=== PATIENT | female | born 1945 | race African-American/Black ===

== ENCOUNTER 2021-03-06 10:36 | Emergency (ER) | payer OTHER ==
[2021-03-06 10:59] VITALS: BP 147/91; PULSE 92; TEMP 98.6; BMI 27.6
[2021-03-06] MEDS ORDERED: IBUPROFEN 600 MG TABLET (FP) PO ONE ×2 (11:30→11:41)
== END 2021-03-06 12:13 | disposition home or self-care (01) ==
LOC: JER 10:36 → JERFT 10:36
DX: M25.511 Pain in right shoulder (principal); M25.561 Pain in right knee
CPT/HCPCS: 73030-TC-RT-FY; 73562-TC-RT-FY; 99284-25

== ENCOUNTER 2022-07-23 14:30 | Inpatient (IN) | payer OTHER, BC ==
[2022-07-30 11:43] VITALS: BMI 24.4
[2022-07-31] MEDS ORDERED: cefOXitin SODIUM 1 GM VIAL (RESTRICTED TO ID) IVPB ONE ×2 (07:15→17:03)
[2022-07-31] MEDS ORDERED: ONDANSETRON 4 MG/2 ML VIAL IVPUSH PRN ×2 (11:47→21:31)
[2022-07-31] MEDS ORDERED: BUPIVACAINE HCL/PF 0.25% (2.5MG/ML) 10 ML VIAL ONE (16:00)
[2022-07-31] MEDS ORDERED: ROCURONIUM BROMIDE 50 MG/5 ML SYRINGE ONE (16:14)
[2022-07-31] MEDS ORDERED: SUCCINYLCHOLINE CHLORIDE 200 MG/10 ML SYRINGE ONE (16:15)
[2022-07-31] MEDS ORDERED: FENTANYL CITRATE/PF 50 MCG/ML VIAL ONE ×2 (16:15→22:16)
[2022-07-31] MEDS ORDERED: PROPOFOL 20 ML ONE (16:15)
[2022-07-31] MEDS ORDERED: ceFAZolin SODIUM 1 GM VIAL ONE (16:25)
[2022-07-31] MEDS ORDERED: INDOCYANINE GREEN 25 MG/10 ML VIAL IVPUSH ONE (16:25)
[2022-07-31] MEDS ORDERED: ceFAZolin SODIUM 1 GM VIAL IVPB ONE (17:03)
[2022-07-31] MEDS ORDERED: DEXAMETHASONE SOD PHOSPHATE 4 MG/1 ML VIAL ONE (17:17)
[2022-07-31] MEDS ORDERED: ONDANSETRON 4 MG/2 ML VIAL ONE (17:17)
[2022-07-31] MEDS ORDERED: BUPIVACAINE HCL/PF 0.25% (2.5MG/ML) 10 ML VIAL IJ ONE (17:18)
[2022-07-31] MEDS ORDERED: HYDROmorphone HCl 2 MG/ML VIAL ONE (19:36)
[2022-07-31] MEDS ORDERED: SUGAMMADEX SODIUM 200 MG/2 ML VIAL ONE (21:01)
[2022-07-31] MEDS ORDERED: ACETAMINOPHEN INJECTION 100 ML IVPB ONE (21:19)
[2022-07-31] MEDS: ACETAMINOPHEN 1000 MG/100 ML BAG IVPB SCH ×2 (21:30→23:33)
[2022-08-01] MEDS: SODIUM CHLORIDE 1,000 ML IV SCH (00:55)
[2022-08-01] MEDS: IBUPROFEN 800 MG/8 ML IJ IVPB SCH ×3 (00:56→18:12)
[2022-08-01] MEDS ORDERED: cefOXitin SODIUM 1 GM VIAL (RESTRICTED TO ID) IVPB ONE (01:00)
[2022-08-01 04:20] LABS: EPI CELLS 10 /uL (0-25.1); HYALINE CASTS 1 /uL (0-3.1); PH,URINE 6.5 (5.0-8.0); URINE APPEARANCE CLEAR; URINE BACTERIA 13 /uL (0-1359); URINE BILIRUBIN NEGATIVE (NEGATIVE); URINE COLOR YELLOW; URINE GLUCOSE (UA) NEGATIVE (NEGATIVE); URINE KETONE 2+ (NEGATIVE); URINE LEUK ESTERASE NEGATIVE (NEGATIVE); URINE NITRITE NEGATIVE (NEGATIVE); URINE PROTEIN NEGATIVE (NEGATIVE); URINE RBC 26 /uL (0-23.9); URINE UROBILINOGEN 0.2 mg/dL (0.2-1.0); URINE WBC 18 /uL (0-25.8)
[2022-08-01] MEDS: ACETAMINOPHEN 1000 MG/100 ML BAG IVPB SCH ×2 (05:13→09:30)
[2022-08-01] MEDS ORDERED: oxyCODONE HCL 5 MG TABLET PO PRN ×4 (08:11→09:35)
[2022-08-01] MEDS ORDERED: HYDROmorphone HCl 2 MG/ML VIAL IVPB STA (08:21)
[2022-08-01] MEDS: ENOXAPARIN NA (PORCINE) 40 MG/0.4 ML DISP.SYRIN SQ SCH (10:29)
[2022-08-01 10:48] LABS: HEMATOCRIT 38.1 % (32.4-45.2); MCH 25.3 pg (25.7-33.7); MCHC 31.5 g/dl (32.0-36.0); MEAN CELL VOLUME 80.2 fl (80-96); MEAN PLT VOLUME 8.2 fl (7.5-11.1); PLATELET COUNT 326 10^3/uL (134-434); RBC 4.75 M/mm3 (3.60-5.2); RDW 14.9 % (11.6-15.6); WHITE BLOOD COUNT 13.2 K/mm3 (4.0-10.0)
[2022-08-01 11:45] LABS: BLOOD UREA NITROGEN 9.2 mg/dL (7-18)
[2022-08-01 11:47] LABS: CALCIUM 9.2 mg/dL (8.5-10.1); PHOSPHOROUS 3.5 mg/dL (2.5-4.9)
[2022-08-01 11:48] LABS: CREATININE 0.7 mg/dL (0.55-1.3)
[2022-08-01] MEDS: LACTATED RINGERS SOLUTION 1,000 ML IV SCH ×2 (11:53→13:59)
[2022-08-01] MEDS ORDERED: ACETAMINOPHEN 1000 MG/100 ML BAG IVPB ONE (16:00)
[2022-08-01] MEDS ORDERED: ZOLPIDEM TARTRATE 5 MG TABLET PO PRN (22:00)
[2022-08-01] MEDS: ACETAMINOPHEN 500 MG TABLET (FP) PO SCH (22:28)
[2022-08-02] MEDS: IBUPROFEN 600 MG TABLET (FP) PO SCH ×3 (02:15→16:41)
[2022-08-02] MEDS: SODIUM CHLORIDE 1,000 ML IV SCH ×2 (02:35→02:36)
[2022-08-02] MEDS: ACETAMINOPHEN 500 MG TABLET (FP) PO SCH ×4 (05:35→21:51)
[2022-08-02] MEDS: ENOXAPARIN NA (PORCINE) 40 MG/0.4 ML DISP.SYRIN SQ SCH (09:16)
[2022-08-02] MEDS ORDERED: IRON CARBONYL 45 MG PO SCH (10:00)
[2022-08-02 10:01] LABS: BASO % 0.1 % (0-2.0); HEMOGLOBIN 12.4 GM/dL (10.7-15.3); LYMPH % 7.3 % (8-40); MCH 25.9 pg (25.7-33.7); MCHC 32.5 g/dl (32.0-36.0); MEAN CELL VOLUME 79.8 fl (80-96); MONO % 2.1 % (3.8-10.2); NEUT % 90.5 % (42.8-82.8); PLATELET COUNT 286 10^3/uL (134-434); RBC 4.76 M/mm3 (3.60-5.2); RDW 14.8 % (11.6-15.6); WHITE BLOOD COUNT 6.3 K/mm3 (4.0-10.0)
[2022-08-02 10:18] LABS: BLOOD UREA NITROGEN 11.9 mg/dL (7-18); CALCIUM 8.9 mg/dL (8.5-10.1)
[2022-08-02 10:19] LABS: ALBUMIN 2.8 g/dl (3.4-5.0); MAGNESIUM 1.8 mg/dL (1.8-2.4)
[2022-08-02 10:21] LABS: PHOSPHOROUS 3.3 mg/dL (2.5-4.9)
[2022-08-02 10:23] LABS: CREATININE 0.8 mg/dL (0.55-1.3); TOT PROT 6.1 g/dl (6.4-8.2)
[2022-08-02] MEDS ORDERED: ZOLPIDEM TARTRATE 5 MG TABLET PO PRN (11:07)
[2022-08-03 00:35] VITALS: RESP 18
[2022-08-03] MEDS: IBUPROFEN 600 MG TABLET (FP) PO SCH ×2 (00:44→09:27)
[2022-08-03] MEDS: ACETAMINOPHEN 500 MG TABLET (FP) PO SCH (04:46)
[2022-08-03 09:17] LABS: HEMATOCRIT 38.1 % (32.4-45.2); HEMOGLOBIN 12.3 GM/dL (10.7-15.3); MCH 25.4 pg (25.7-33.7); MCHC 32.4 g/dl (32.0-36.0); MEAN CELL VOLUME 78.5 fl (80-96); MEAN PLT VOLUME 8.5 fl (7.5-11.1); PLATELET COUNT 293 10^3/uL (134-434); RBC 4.86 M/mm3 (3.60-5.2); RDW 15.1 % (11.6-15.6); WHITE BLOOD COUNT 3.3 K/mm3 (4.0-10.0)
[2022-08-03] MEDS: ENOXAPARIN NA (PORCINE) 40 MG/0.4 ML DISP.SYRIN SQ SCH (09:28)
[2022-08-03 09:31] VITALS: BP 108/60; PULSE 101; TEMP 97.9
[2022-08-03 09:55] LABS: ANISOCYTOSIS 1+; MACROCYTOSIS 0
[2022-08-03 09:57] LABS: BLOOD UREA NITROGEN 18.6 mg/dL (7-18)
[2022-08-03 09:58] LABS: CREATININE 0.8 mg/dL (0.55-1.3)
[2022-08-03 09:59] LABS: PHOSPHOROUS 3.2 mg/dL (2.5-4.9)
[2022-08-03 10:00] LABS: BILIRUBIN,TOTAL 0.6 mg/dL (0.2-1); TOT PROT 5.4 g/dl (6.4-8.2)
[2022-08-03 10:06] LABS: ALBUMIN 2.2 g/dl (3.4-5.0)
== END 2022-08-03 13:15 | disposition home or self-care (01) | DRG 330 ==
LOC: J2C 07-31 05:34 → EDSTATUS 07-31 12:30 → J8W 07-31 23:21
PROVIDERS: ADMIT Surgery; ATTEND Internal Medicine
PROC: 8E0W4CZ Robotic Assisted Procedure of Trunk Region, Percutaneous Endoscopic Approach (ICD-10-PCS; 2022-07-31)
PROC: 0DTF4ZZ Resection of Right Large Intestine, Percutaneous Endoscopic Approach (ICD-10-PCS; principal; 2022-07-31 10:20)
DX: C18.3 Malignant neoplasm of hepatic flexure (principal); C18.2 Malignant neoplasm of ascending colon; D50.9 Iron deficiency anemia, unspecified; E55.9 Vitamin D deficiency, unspecified; G47.00 Insomnia, unspecified; Z85.3 Personal history of malignant neoplasm of breast; Z96.653 Presence of artificial knee joint, bilateral
CPT/HCPCS: 36415; 80048; 80053; 81003; 83735; 84100; 85025; 85027; 86140; 88307-TC; 94760; 97116-GP; 97161-GP; C9803-CS; U0003; U0005

== ENCOUNTER 2022-08-04 09:50 | Inpatient (IN) | payer OTHER, BC ==
[2022-08-04] MEDS ORDERED: SODIUM CHLORIDE 0.9% 500 ML INFUS.BAG IV ONE ×3 (11:24→15:25)
[2022-08-04] MEDS ORDERED: ACETAMINOPHEN 1000 MG/100 ML BAG IVPB ONE (13:00)
[2022-08-04 13:03] LABS: VENOUS BASE EXCESS -1.9 mmol/L (-2-2); VENOUS O2 SATURATION 78.1 % (70-80); VENOUS PCO2 32.4 mmHg (38-52); VENOUS PH 7.437 (7.310-7.410)
[2022-08-04 13:07] LABS: HEMATOCRIT 37.9 % (32.4-45.2); HEMOGLOBIN 12.5 GM/dL (10.7-15.3); MCH 25.5 pg (25.7-33.7); MCHC 32.9 g/dl (32.0-36.0); MEAN CELL VOLUME 77.6 fl (80-96); MEAN PLT VOLUME 9.3 fl (7.5-11.1); PLATELET COUNT 340 10^3/uL (134-434); RBC 4.89 M/mm3 (3.60-5.2); RDW 15.2 % (11.6-15.6); WHITE BLOOD COUNT 4.3 K/mm3 (4.0-10.0)
[2022-08-04 13:15] LABS: INR 1.09 (0.83-1.09); PROTHROMBIN TIME (PATIENT) 12.6 SEC (9.7-13.0)
[2022-08-04 13:18] LABS: ACTIVATED PTT 29.2 SECONDS (25.2-36.5)
[2022-08-04 13:25] LABS: CALCIUM 9.3 mg/dL (8.5-10.1)
[2022-08-04 13:26] LABS: BLOOD UREA NITROGEN 40.4 mg/dL (7-18)
[2022-08-04 13:29] LABS: CREATININE 1.6 mg/dL (0.55-1.3)
[2022-08-04 13:31] LABS: BILIRUBIN,TOTAL 0.9 mg/dL (0.2-1); TOT PROT 6.1 g/dl (6.4-8.2)
[2022-08-04] MEDS ORDERED: ACETAMINOPHEN INJECTION 100 ML IVPB ONE (13:37)
[2022-08-04 13:46] LABS: ANISOCYTOSIS 0; HELMET CELLS 0; HOWELL-JOLLY BODIES 0; MACROCYTOSIS 0; OVALOCYTE 0; ROULEAU 0; SICKELED CELLS 0; TARGET CELLS 0; TEAR DROP CELLS 0; TOXIC GRANULATION 0
[2022-08-04 15:01] LABS: CALCIUM 8.5 mg/dL (8.5-10.1)
[2022-08-04 15:02] LABS: BLOOD UREA NITROGEN 41.3 mg/dL (7-18)
[2022-08-04 15:05] LABS: CREATININE 1.5 mg/dL (0.55-1.3)
[2022-08-04 15:54] LABS: EPI CELLS >36 /uL (0-25.1); HYALINE CASTS 41 /uL (0-3.1); URINE APPEARANCE CLOUDY; URINE BACTERIA 14 /uL (0-1359); URINE BILIRUBIN 1+ (NEGATIVE); URINE COLOR DK YELLOW; URINE GLUCOSE (UA) NEGATIVE (NEGATIVE); URINE KETONE 1+ (NEGATIVE); URINE LEUK ESTERASE TRACE (NEGATIVE); URINE NITRITE NEGATIVE (NEGATIVE); URINE PROTEIN 2+ (NEGATIVE); URINE RBC 18 /uL (0-23.9); URINE WBC 74 /uL (0-25.8)
[2022-08-04] MEDS ORDERED: SODIUM CHLORIDE 1,000 ML IV SCH (16:30)
[2022-08-04] MEDS ORDERED: VANCOMYCIN 1 GM in D5W (PRE-DOCKED) 1,000 MG/250 ML IVPB ONE (17:09)
[2022-08-04] MEDS ORDERED: PIPERACILLIN/TAZOB 2.25 GM 2.25 GM in DEXTROSE 5%-WATER - 50 ML IVPB ONE (17:14)
[2022-08-04] MEDS ORDERED: PIPERACILLIN/TAZOB 2.25 GM 2.25 GM/50 ML BAG IVPB ONE ×2 (17:25→23:13)
[2022-08-04] MEDS ORDERED: VANCOMYCIN/WATER FOR INJ (PEG) 1,000 MG/200 ML BAG IVPB ONE (17:25)
[2022-08-04] MEDS ORDERED: ONDANSETRON 4 MG/2 ML VIAL IVPUSH PRN (18:15)
[2022-08-04] MEDS ORDERED: ZOLPIDEM TARTRATE 10 MG PO PRN (18:19)
[2022-08-04] MEDS ORDERED: ACETAMINOPHEN 325 MG TABLET (FP) PO PRN (18:19)
[2022-08-04] MEDS ORDERED: ZOLPIDEM TARTRATE 5 MG TABLET PO PRN (18:21)
[2022-08-04] MEDS ORDERED: oxyCODONE HCL 5 MG TABLET ONE (18:57)
[2022-08-04] MEDS: oxyCODONE HCL 5 MG TABLET PO PRN (19:00)
[2022-08-04] MEDS: PIPERACILLIN/TAZOB 2.25 GM 2.25 GM in DEXTROSE 5%-WATER - 50 ML IVPB SCH (23:19)
[2022-08-04] MEDS ORDERED: ZOLPIDEM TARTRATE 5 MG TABLET ONE (23:39)
[2022-08-05] MEDS ORDERED: PIPERACILLIN/TAZOB 2.25 GM 2.25 GM/50 ML BAG IVPB ONE ×2 (04:36→10:57)
[2022-08-05] MEDS: PIPERACILLIN/TAZOB 2.25 GM 2.25 GM in DEXTROSE 5%-WATER - 50 ML IVPB SCH (04:47)
[2022-08-05] MEDS ORDERED: PIPERACILLIN/TAZOB 2.25 GM 2.25 GM in DEXTROSE 5%-WATER - 50 ML IVPB SCH (09:00)
[2022-08-05 09:16] LABS: CALCIUM 8.8 mg/dL (8.5-10.1)
[2022-08-05 09:17] LABS: ALBUMIN 1.8 g/dl (3.4-5.0); BLOOD UREA NITROGEN 30.2 mg/dL (7-18)
[2022-08-05 09:19] LABS: BILIRUBIN,TOTAL 0.8 mg/dL (0.2-1); TOT PROT 5.2 g/dl (6.4-8.2)
[2022-08-05 09:40] LABS: HEMATOCRIT 35.2 % (32.4-45.2); HEMOGLOBIN 11.3 GM/dL (10.7-15.3); MCH 25.5 pg (25.7-33.7); MCHC 32.2 g/dl (32.0-36.0); MEAN CELL VOLUME 79.2 fl (80-96); MEAN PLT VOLUME 8.6 fl (7.5-11.1); PLATELET COUNT 292 10^3/uL (134-434); RBC 4.44 M/mm3 (3.60-5.2); RDW 15.3 % (11.6-15.6); WHITE BLOOD COUNT 6.9 K/mm3 (4.0-10.0)
[2022-08-05 10:45] LABS: ANISOCYTOSIS 0; HELMET CELLS 0; HOWELL-JOLLY BODIES 0; MACROCYTOSIS 0; OVALOCYTE 0; ROULEAU 0; SICKELED CELLS 0; TARGET CELLS 0; TEAR DROP CELLS 0; TOXIC GRANULATION 0
[2022-08-05] MEDS ORDERED: oxyCODONE HCL 5 MG TABLET ONE (11:59)
[2022-08-05] MEDS: oxyCODONE HCL 5 MG TABLET PO PRN (12:10)
[2022-08-05] MEDS ORDERED: DEXTROSE 5%-LACTATED RINGERS 1,000 ML IV SCH (12:15)
[2022-08-05 13:07] LABS: VENOUS BASE EXCESS -5.2 mmol/L (-2-2); VENOUS O2 SATURATION 91.7 % (70-80); VENOUS PCO2 31.9 mmHg (38-52); VENOUS PH 7.391 (7.310-7.410)
[2022-08-05] MEDS ORDERED: ACETAMINOPHEN INJECTION 100 ML IVPB ONE ×2 (14:13→17:58)
[2022-08-05] MEDS ORDERED: PIPERACILLIN/TAZOB 3.375 GM 3.375 GM in DEXTROSE 5%-WATER - 50 ML IVPB SCH (15:00)
[2022-08-05] MEDS ORDERED: HYDROmorphone HCL CARPU-JECT 2 MG/1 ML DISP.SYRIN IVPUSH PRN (15:11)
[2022-08-05] MEDS ORDERED: ONDANSETRON 4 MG/2 ML VIAL ONE (15:41)
[2022-08-05] MEDS ORDERED: FENTANYL CITRATE/PF 50 MCG/ML VIAL ONE (15:41)
[2022-08-05] MEDS ORDERED: MIDAZOLAM HCL 2 MG/2 ML SINGLE DOSE VIAL ONE (15:41)
[2022-08-05] MEDS ORDERED: DEXAMETHASONE SOD PHOSPHATE 4 MG/1 ML VIAL ONE (15:41)
[2022-08-05] MEDS ORDERED: LIDOCAINE HCL/PF 2% SDV 5ML VIAL ONE (15:41)
[2022-08-05] MEDS ORDERED: BUPIVACAINE HCL/PF 0.25% (2.5MG/ML) 10 ML VIAL ONE (16:23)
[2022-08-05] MEDS ORDERED: cefOXitin SODIUM 1 GM VIAL (RESTRICTED TO ID) IVPB ONE (17:06)
[2022-08-05] MEDS ORDERED: GLYCOPYRROLATE 0.2 MG/1 ML VIAL ONE (18:18)
[2022-08-05] MEDS ORDERED: NEOSTIGMINE METHYLSULFATE 0.5 MG/ML - 10 ML MDV ONE (18:18)
[2022-08-05] MEDS ORDERED: SUGAMMADEX SODIUM 200 MG/2 ML VIAL ONE (19:02)
[2022-08-05] MEDS ORDERED: ONDANSETRON 4 MG/2 ML VIAL IVPUSH PRN ×2 (19:25→19:30)
[2022-08-05] MEDS ORDERED: HYDROmorphone HCl 2 MG/ML VIAL IVPUSH PRN (19:25)
[2022-08-05] MEDS ORDERED: ZOLPIDEM TARTRATE 5 MG TABLET PO PRN (19:25)
[2022-08-05] MEDS ORDERED: oxyCODONE HCL 5 MG TABLET PO PRN (19:25)
[2022-08-05] MEDS ORDERED: ACETAMINOPHEN 325 MG TABLET (FP) PO PRN (19:25)
[2022-08-05] MEDS ORDERED: HYDROmorphone HCl 2 MG/ML VIAL ONE (19:27)
[2022-08-05] MEDS ORDERED: HYDROmorphone HCl 2 MG/ML VIAL IVPUSH ONE (19:28)
[2022-08-05] MEDS: DEXTROSE 5%-LACTATED RINGERS 1,000 ML IV SCH (21:22)
[2022-08-05] MEDS: PIPERACILLIN/TAZOB 3.375 GM 3.375 GM in DEXTROSE 5%-WATER - 50 ML IVPB SCH (21:23)
[2022-08-05] MEDS: CHLORHEXIDINE GLUCONATE 4% CLEANSER FOR DECOLONIZATION TP SCH (22:21)
[2022-08-05] MEDS: MUPIROCIN 2% TOPICAL OINTMENT FOR DECOLONIZATION NS SCH (22:21)
[2022-08-05] MEDS ORDERED: LACTATED RINGERS SOLUTION 1000 ML INFUS.BAG IV ONE (23:03)
[2022-08-06] MEDS: PIPERACILLIN/TAZOB 3.375 GM 3.375 GM in DEXTROSE 5%-WATER - 50 ML IVPB SCH ×4 (03:22→21:30)
[2022-08-06] MEDS ORDERED: HYDROmorphone HCL CARPU-JECT 2 MG/1 ML DISP.SYRIN IVPUSH PRN (06:24)
[2022-08-06] MEDS ORDERED: LACTATED RINGERS SOLUTION 1000 ML INFUS.BAG IV ONE (06:45)
[2022-08-06 08:05] LABS: INR 1.19 (0.83-1.09); PROTHROMBIN TIME (PATIENT) 13.7 SEC (9.7-13.0)
[2022-08-06 08:07] LABS: ACTIVATED PTT 24.2 SECONDS (25.2-36.5)
[2022-08-06 08:09] LABS: HEMATOCRIT 33.9 % (32.4-45.2); HEMOGLOBIN 10.9 GM/dL (10.7-15.3); MCH 25.5 pg (25.7-33.7); MCHC 32.2 g/dl (32.0-36.0); MEAN CELL VOLUME 79.1 fl (80-96); MEAN PLT VOLUME 8.7 fl (7.5-11.1); PLATELET COUNT 247 10^3/uL (134-434); RBC 4.28 M/mm3 (3.60-5.2); RDW 15.7 % (11.6-15.6)
[2022-08-06 08:29] LABS: BLOOD UREA NITROGEN 22.8 mg/dL (7-18); CALCIUM 8.6 mg/dL (8.5-10.1)
[2022-08-06 08:30] LABS: MAGNESIUM 2.2 mg/dL (1.8-2.4)
[2022-08-06 08:32] LABS: CREATININE 0.8 mg/dL (0.55-1.3); PHOSPHOROUS 3.4 mg/dL (2.5-4.9)
[2022-08-06 08:34] LABS: BILIRUBIN,TOTAL 1.4 mg/dL (0.2-1); TOT PROT 4.4 g/dl (6.4-8.2)
[2022-08-06 08:45] LABS: ALBUMIN 1.3 g/dl (3.4-5.0)
[2022-08-06] MEDS: ACETAMINOPHEN 1000 MG/100 ML BAG IVPB PRN (09:28)
[2022-08-06] MEDS: HEPARIN NA (PORCINE) 5,000 UNITS/ML 1ML VIAL SQ SCH ×2 (09:30→22:00)
[2022-08-06] MEDS: MUPIROCIN 2% TOPICAL OINTMENT FOR DECOLONIZATION NS SCH (09:30)
[2022-08-06] MEDS: HYDROmorphone HCl 2 MG/ML VIAL IVPUSH PRN ×3 (09:35→20:46)
[2022-08-06 12:08] LABS: ANISOCYTOSIS 0; MACROCYTOSIS 0
[2022-08-06 15:51] LABS: EPI CELLS >36 /uL (0-25.1); HYALINE CASTS 0 /uL (0-3.1); URINE APPEARANCE CLEAR; URINE BACTERIA 5 /uL (0-1359); URINE BILIRUBIN 1+ (NEGATIVE); URINE COLOR DK YELLOW; URINE GLUCOSE (UA) NEGATIVE (NEGATIVE); URINE KETONE TRACE (NEGATIVE); URINE LEUK ESTERASE NEGATIVE (NEGATIVE); URINE NITRITE NEGATIVE (NEGATIVE); URINE PROTEIN 2+ (NEGATIVE); URINE RBC 193 /uL (0-23.9)
[2022-08-06 16:47] LABS: URINE WBC 58 /uL (0-25.8)
[2022-08-07] MEDS: MUPIROCIN 2% TOPICAL OINTMENT FOR DECOLONIZATION NS SCH ×3 (00:12→22:33)
[2022-08-07] MEDS: DEXTROSE 5%-LACTATED RINGERS 1,000 ML IV SCH (00:12)
[2022-08-07] MEDS: CHLORHEXIDINE GLUCONATE 4% CLEANSER FOR DECOLONIZATION TP SCH ×2 (00:12→22:33)
[2022-08-07] MEDS: HYDROmorphone HCl 2 MG/ML VIAL IVPUSH PRN ×4 (00:12→18:24)
[2022-08-07] MEDS: ACETAMINOPHEN 1000 MG/100 ML BAG IVPB PRN ×3 (01:38→15:53)
[2022-08-07] MEDS: PIPERACILLIN/TAZOB 3.375 GM 3.375 GM in DEXTROSE 5%-WATER - 50 ML IVPB SCH ×4 (02:31→22:33)
[2022-08-07 07:37] LABS: HEMATOCRIT 30.5 % (32.4-45.2); HEMOGLOBIN 9.9 GM/dL (10.7-15.3); MCH 25.2 pg (25.7-33.7); MCHC 32.5 g/dl (32.0-36.0); MEAN CELL VOLUME 77.6 fl (80-96); MEAN PLT VOLUME 8.6 fl (7.5-11.1); PLATELET COUNT 228 10^3/uL (134-434); RBC 3.93 M/mm3 (3.60-5.2); RDW 15.5 % (11.6-15.6); WHITE BLOOD COUNT 11.4 K/mm3 (4.0-10.0)
[2022-08-07 07:56] LABS: ALBUMIN 1.3 g/dl (3.4-5.0); BLOOD UREA NITROGEN 24.2 mg/dL (7-18); CALCIUM 8.6 mg/dL (8.5-10.1); MAGNESIUM 2.2 mg/dL (1.8-2.4)
[2022-08-07 07:59] LABS: CREATININE 0.7 mg/dL (0.55-1.3); PHOSPHOROUS 2.4 mg/dL (2.5-4.9)
[2022-08-07 08:01] LABS: BILIRUBIN,TOTAL 1.4 mg/dL (0.2-1); TOT PROT 4.6 g/dl (6.4-8.2)
[2022-08-07] MEDS ORDERED: SODIUM CHLORIDE 0.45% 500 ML IV ONE (08:29)
[2022-08-07] MEDS: HEPARIN NA (PORCINE) 5,000 UNITS/ML 1ML VIAL SQ SCH ×3 (08:36→22:33)
[2022-08-07] MEDS ORDERED: NAPH,MB-DB/K PH,MBDB POWDER PACKET PO ONE (09:00)
[2022-08-07] MEDS: KCL 10 MEQ IVPB 10 MEQ/100 ML INFUS.BAG IVPB SCH ×3 (09:13→11:55)
[2022-08-07] MEDS: DEXTROSE 5%-0.45% SALINE 1,000 ML IV SCH (10:22)
[2022-08-07] MEDS ORDERED: DIPHENOXYLATE 2.5/ATROPINE.025 1 COMBO TABLET PO SCH (13:45)
[2022-08-07] MEDS ORDERED: DIPHENOXYLATE 2.5/ATROPINE.025 1 COMBO TABLET PO PRN (14:15)
[2022-08-07] MEDS: PSYLLIUM 5.85 GM PACKET PO SCH ×2 (16:14→22:00)
[2022-08-08] MEDS: PIPERACILLIN/TAZOB 3.375 GM 3.375 GM in DEXTROSE 5%-WATER - 50 ML IVPB SCH ×4 (02:19→23:20)
[2022-08-08] MEDS: HEPARIN NA (PORCINE) 5,000 UNITS/ML 1ML VIAL SQ SCH ×3 (06:47→22:58)
[2022-08-08] MEDS: PSYLLIUM 5.85 GM PACKET PO SCH ×3 (06:47→23:00)
[2022-08-08 07:34] LABS: HEMATOCRIT 30.8 % (32.4-45.2); HEMOGLOBIN 10.1 GM/dL (10.7-15.3); MCH 25.4 pg (25.7-33.7); MCHC 32.6 g/dl (32.0-36.0); MEAN CELL VOLUME 77.8 fl (80-96); MEAN PLT VOLUME 9.1 fl (7.5-11.1); PLATELET COUNT 232 10^3/uL (134-434); RBC 3.96 M/mm3 (3.60-5.2); RDW 15.5 % (11.6-15.6); WHITE BLOOD COUNT 13.4 K/mm3 (4.0-10.0)
[2022-08-08 08:06] LABS: CALCIUM 8.5 mg/dL (8.5-10.1)
[2022-08-08 08:07] LABS: ALBUMIN 1.3 g/dl (3.4-5.0); BLOOD UREA NITROGEN 16.3 mg/dL (7-18); MAGNESIUM 1.6 mg/dL (1.8-2.4)
[2022-08-08 08:10] LABS: CREATININE 0.6 mg/dL (0.55-1.3); PHOSPHOROUS 1.7 mg/dL (2.5-4.9)
[2022-08-08 08:12] LABS: BILIRUBIN,TOTAL 1.1 mg/dL (0.2-1); TOT PROT 4.4 g/dl (6.4-8.2)
[2022-08-08] MEDS ORDERED: MAGNESIUM 2GM/50ML STERILE WATER IVPB IVPB ONE (08:14)
[2022-08-08] MEDS ORDERED: MAGNESIUM SULF 50% (8.12 MEQ/2 ML-1 GM VIAL) IVPB ONE (08:14)
[2022-08-08] MEDS ORDERED: NAPH,MB-DB/K PH,MBDB POWDER PACKET PO ONE ×2 (08:15)
[2022-08-08] MEDS: ACETAMINOPHEN 1000 MG/100 ML BAG IVPB PRN ×3 (08:25→22:58)
[2022-08-08] MEDS: DEXTROSE 5%-0.45% SALINE 1,000 ML IV SCH ×2 (10:11→22:59)
[2022-08-08] MEDS: MUPIROCIN 2% TOPICAL OINTMENT FOR DECOLONIZATION NS SCH ×2 (10:11→22:58)
[2022-08-08] MEDS: oxyCODONE HCL 5 MG TABLET PO PRN ×2 (13:12→20:07)
[2022-08-08] MEDS: CHLORHEXIDINE GLUCONATE 4% CLEANSER FOR DECOLONIZATION TP SCH (22:59)
[2022-08-09] MEDS: oxyCODONE HCL 5 MG TABLET PO PRN ×2 (01:37→22:35)
[2022-08-09] MEDS: PIPERACILLIN/TAZOB 3.375 GM 3.375 GM in DEXTROSE 5%-WATER - 50 ML IVPB SCH ×4 (03:30→21:47)
[2022-08-09] MEDS ORDERED: ONDANSETRON 4 MG/2 ML VIAL IVPUSH PRN (04:05)
[2022-08-09] MEDS ORDERED: HYDROmorphone HCl 2 MG/ML VIAL IVPUSH PRN (04:05)
[2022-08-09] MEDS: DEXTROSE 5%-0.45% SALINE 1,000 ML IV SCH ×3 (04:12→17:54)
[2022-08-09] MEDS: HEPARIN NA (PORCINE) 5,000 UNITS/ML 1ML VIAL SQ SCH ×3 (06:18→21:47)
[2022-08-09] MEDS: ACETAMINOPHEN 1000 MG/100 ML BAG IVPB PRN (07:01)
[2022-08-09] MEDS: PSYLLIUM 5.85 GM PACKET PO SCH ×3 (07:02→21:47)
[2022-08-09] MEDS ORDERED: PIPERACILLIN/TAZOB 3.375 GM 3.375 GM in DEXTROSE 5%-WATER - 50 ML IVPB SCH (09:00)
[2022-08-09] MEDS ORDERED: HYDROmorphone HCl 2 MG/ML VIAL IVPB PRN (09:23)
[2022-08-09 09:52] LABS: HEMATOCRIT 32.1 % (32.4-45.2); HEMOGLOBIN 10.7 GM/dL (10.7-15.3); MCH 25.6 pg (25.7-33.7); MCHC 33.2 g/dl (32.0-36.0); MEAN CELL VOLUME 76.9 fl (80-96); MEAN PLT VOLUME 8.5 fl (7.5-11.1); PLATELET COUNT 310 10^3/uL (134-434); RBC 4.18 M/mm3 (3.60-5.2); RDW 14.9 % (11.6-15.6); WHITE BLOOD COUNT 16.7 K/mm3 (4.0-10.0)
[2022-08-09 10:22] LABS: ALBUMIN 1.3 g/dl (3.4-5.0); CALCIUM 8.2 mg/dL (8.5-10.1)
[2022-08-09 10:23] LABS: BLOOD UREA NITROGEN 8.4 mg/dL (7-18); CREATININE 0.4 mg/dL (0.55-1.3); MAGNESIUM 1.5 mg/dL (1.8-2.4)
[2022-08-09 10:25] LABS: BILIRUBIN,TOTAL 0.8 mg/dL (0.2-1); TOT PROT 4.6 g/dl (6.4-8.2)
[2022-08-09] MEDS ORDERED: HYDROmorphone HCl 2 MG/ML VIAL IVPB ONE (14:33)
[2022-08-09] MEDS ORDERED: MAGNESIUM SULF 50% (8.12 MEQ/2 ML-1 GM VIAL) IVPB ONE (14:38)
[2022-08-09] MEDS ORDERED: POTASSIUM PHOSPHATE 30 MM in DEXTROSE 5%-WATER - 500 ML IVPB ONE (14:38)
[2022-08-09] MEDS ORDERED: INSULIN (NOVOLOG) ASPART 100 UNITS/ML 10ML VIAL ONE (21:23)
[2022-08-10] MEDS: HYDROmorphone HCl 2 MG/ML VIAL IVPB PRN ×3 (01:51→13:39)
[2022-08-10] MEDS: PIPERACILLIN/TAZOB 3.375 GM 3.375 GM in DEXTROSE 5%-WATER - 50 ML IVPB SCH (03:39)
[2022-08-10] MEDS: oxyCODONE HCL 5 MG TABLET PO PRN ×3 (04:35→18:26)
[2022-08-10] MEDS: HEPARIN NA (PORCINE) 5,000 UNITS/ML 1ML VIAL SQ SCH ×3 (06:21→22:33)
[2022-08-10] MEDS: PSYLLIUM 5.85 GM PACKET PO SCH ×3 (06:22→22:26)
[2022-08-10 11:42] LABS: HEMATOCRIT 29.4 % (32.4-45.2); HEMOGLOBIN 9.8 GM/dL (10.7-15.3); MCH 25.6 pg (25.7-33.7); MCHC 33.3 g/dl (32.0-36.0); MEAN CELL VOLUME 76.8 fl (80-96); MEAN PLT VOLUME 8.6 fl (7.5-11.1); PLATELET COUNT 366 10^3/uL (134-434); RBC 3.83 M/mm3 (3.60-5.2); RDW 14.7 % (11.6-15.6); WHITE BLOOD COUNT 19.2 K/mm3 (4.0-10.0)
[2022-08-10 12:20] LABS: ALBUMIN 1.3 g/dl (3.4-5.0); BLOOD UREA NITROGEN 10.1 mg/dL (7-18); CALCIUM 7.8 mg/dL (8.5-10.1); MAGNESIUM 1.8 mg/dL (1.8-2.4)
[2022-08-10 12:23] LABS: CREATININE 0.3 mg/dL (0.55-1.3); PHOSPHOROUS 2.9 mg/dL (2.5-4.9); TOT PROT 4.4 g/dl (6.4-8.2)
[2022-08-10 12:24] LABS: BILIRUBIN,TOTAL 0.6 mg/dL (0.2-1)
[2022-08-10 12:33] LABS: ANISOCYTOSIS 0; HELMET CELLS 0; HOWELL-JOLLY BODIES 0; MACROCYTOSIS 0; OVALOCYTE 0; ROULEAU 0; SICKELED CELLS 0; TARGET CELLS 0; TEAR DROP CELLS 0; TOXIC GRANULATION 0
[2022-08-10 13:05] VITALS: BMI 26.3
[2022-08-10] MEDS ORDERED: ACETAMINOPHEN 325 MG TABLET (FP) PO PRN (17:07)
[2022-08-10] MEDS: DEXTROSE 5%-0.45% SALINE 1,000 ML IV SCH ×2 (17:44→19:08)
[2022-08-10] MEDS: ZOLPIDEM TARTRATE 5 MG TABLET PO PRN (22:33)
[2022-08-11] MEDS: oxyCODONE HCL 5 MG TABLET PO PRN ×4 (01:55→21:14)
[2022-08-11] MEDS ORDERED: PIPERACILLIN/TAZOB 3.375 GM 3.375 GM in DEXTROSE 5%-WATER - 50 ML IVPB ONE (03:15)
[2022-08-11] MEDS: DEXTROSE 5%-0.45% SALINE 1,000 ML IV SCH (06:10)
[2022-08-11] MEDS: HEPARIN NA (PORCINE) 5,000 UNITS/ML 1ML VIAL SQ SCH ×3 (06:10→21:15)
[2022-08-11] MEDS: PSYLLIUM 5.85 GM PACKET PO SCH ×3 (06:11→22:00)
[2022-08-11] MEDS ORDERED: HYDROmorphone HCl 2 MG/ML VIAL IVPB ONE (08:01)
[2022-08-11] MEDS: AMINO ACIDS/PROTEIN HYDROLYS 30 ML LIQUID.PKT PO SCH (09:19)
[2022-08-11] MEDS: MULTIVIT-MINERALS ORAL LIQUID PO SCH (09:21)
[2022-08-11] MEDS: HYDROmorphone HCl 2 MG/ML VIAL IVPB PRN (11:35)
[2022-08-11 11:37] LABS: HEMATOCRIT 32.4 % (32.4-45.2); HEMOGLOBIN 10.5 GM/dL (10.7-15.3); MCH 25.2 pg (25.7-33.7); MCHC 32.3 g/dl (32.0-36.0); MEAN CELL VOLUME 77.8 fl (80-96); MEAN PLT VOLUME 9.5 fl (7.5-11.1); PLATELET COUNT 402 10^3/uL (134-434); RBC 4.16 M/mm3 (3.60-5.2); RDW 14.7 % (11.6-15.6)
[2022-08-11 11:38] LABS: WHITE BLOOD COUNT 16.4 K/mm3 (4.0-10.0)
[2022-08-11 11:40] LABS: ALBUMIN 1.6 g/dl (3.4-5.0); CALCIUM 8.5 mg/dL (8.5-10.1)
[2022-08-11 11:41] LABS: BLOOD UREA NITROGEN 7.8 mg/dL (7-18); MAGNESIUM 1.9 mg/dL (1.8-2.4)
[2022-08-11 11:43] LABS: CREATININE 0.5 mg/dL (0.55-1.3); PHOSPHOROUS 2.4 mg/dL (2.5-4.9)
[2022-08-11 11:45] LABS: BILIRUBIN,TOTAL 1.1 mg/dL (0.2-1); TOT PROT 5.4 g/dl (6.4-8.2)
[2022-08-11 12:37] LABS: ANISOCYTOSIS 2+; MACROCYTOSIS 0; OVALOCYTE 1+
[2022-08-11] MEDS: PIPERACILLIN/TAZOB 3.375 GM 3.375 GM in DEXTROSE 5%-WATER - 50 ML IVPB SCH (15:07)
[2022-08-12] MEDS: PIPERACILLIN/TAZOB 3.375 GM 3.375 GM in DEXTROSE 5%-WATER - 50 ML IVPB SCH ×3 (01:11→17:17)
[2022-08-12] MEDS: oxyCODONE HCL 5 MG TABLET PO PRN ×3 (03:07→21:36)
[2022-08-12] MEDS: HYDROmorphone HCl 2 MG/ML VIAL IVPB PRN ×2 (06:33→18:15)
[2022-08-12] MEDS: HEPARIN NA (PORCINE) 5,000 UNITS/ML 1ML VIAL SQ SCH ×3 (06:34→21:27)
[2022-08-12] MEDS: PSYLLIUM 5.85 GM PACKET PO SCH ×3 (06:34→21:28)
[2022-08-12] MEDS ORDERED: INSULIN (NOVOLOG) ASPART 100 UNITS/ML 10ML VIAL ONE (06:42)
[2022-08-12] MEDS: AMINO ACIDS/PROTEIN HYDROLYS 30 ML LIQUID.PKT PO SCH (08:05)
[2022-08-12] MEDS: MULTIVIT-MINERALS ORAL LIQUID PO SCH (09:46)
[2022-08-12] MEDS ORDERED: ALPRAZolam 1 MG TABLET PO ONE (13:09)
[2022-08-12] MEDS ORDERED: ALPRAZolam 1 MG TABLET PO PRN (13:09)
[2022-08-12 13:30] LABS: HEMATOCRIT 28.5 % (32.4-45.2); HEMOGLOBIN 9.1 GM/dL (10.7-15.3); MEAN PLT VOLUME 8.7 fl (7.5-11.1); PLATELET COUNT 798 10^3/uL (134-434); RBC 3.66 M/mm3 (3.60-5.2); WHITE BLOOD COUNT 16.1 K/mm3 (4.0-10.0)
[2022-08-12 13:55] LABS: ALBUMIN 1.5 g/dl (3.4-5.0); BLOOD UREA NITROGEN 11.2 mg/dL (7-18); CALCIUM 8.6 mg/dL (8.5-10.1); MAGNESIUM 1.8 mg/dL (1.8-2.4)
[2022-08-12 13:58] LABS: CREATININE 0.5 mg/dL (0.55-1.3)
[2022-08-12 14:00] LABS: BILIRUBIN,TOTAL 0.4 mg/dL (0.2-1); TOT PROT 5.1 g/dl (6.4-8.2)
[2022-08-12 14:03] LABS: ANISOCYTOSIS 2+; MACROCYTOSIS 0; TARGET CELLS 1+
[2022-08-12] MEDS: LOPERAMIDE HCL 2 MG CAPSULE PO SCH ×2 (14:54→21:29)
[2022-08-12] MEDS ORDERED: ACETAMINOPHEN 1000 MG/100 ML BAG IVPB ONE ×2 (18:12→20:00)
[2022-08-12] MEDS: ZOLPIDEM TARTRATE 5 MG TABLET PO PRN (21:35)
[2022-08-13] MEDS: PIPERACILLIN/TAZOB 3.375 GM 3.375 GM in DEXTROSE 5%-WATER - 50 ML IVPB SCH ×4 (01:33→20:02)
[2022-08-13] MEDS: HEPARIN NA (PORCINE) 5,000 UNITS/ML 1ML VIAL SQ SCH ×3 (06:33→21:53)
[2022-08-13] MEDS: LOPERAMIDE HCL 2 MG CAPSULE PO SCH ×3 (06:35→21:55)
[2022-08-13] MEDS: PSYLLIUM 5.85 GM PACKET PO SCH ×3 (06:35→21:55)
[2022-08-13] MEDS ORDERED: INSULIN (NOVOLOG) ASPART 100 UNITS/ML 10ML VIAL ONE (07:05)
[2022-08-13] MEDS: AMINO ACIDS/PROTEIN HYDROLYS 30 ML LIQUID.PKT PO SCH (09:00)
[2022-08-13] MEDS: oxyCODONE HCL 5 MG TABLET PO PRN ×2 (09:00→14:01)
[2022-08-13] MEDS: MULTIVIT-MINERALS ORAL LIQUID PO SCH (10:35)
[2022-08-13] MEDS: ALPRAZolam 1 MG TABLET PO PRN (11:23)
[2022-08-13 11:49] LABS: HEMOGLOBIN 10.4 GM/dL (10.7-15.3); MCH 24.7 pg (25.7-33.7); MCHC 31.6 g/dl (32.0-36.0); MEAN CELL VOLUME 78.2 fl (80-96); MEAN PLT VOLUME 8.5 fl (7.5-11.1); PLATELET COUNT 998 10^3/uL (134-434); RBC 4.22 M/mm3 (3.60-5.2); WHITE BLOOD COUNT 15.3 K/mm3 (4.0-10.0)
[2022-08-13] MEDS ORDERED: SODIUM CHLORIDE 1,000 ML IV STA (12:29)
[2022-08-13] MEDS ORDERED: SODIUM CHLORIDE 1,000 ML IV SCH (12:30)
[2022-08-13 12:32] LABS: ANISOCYTOSIS 1+; MACROCYTOSIS 1+
[2022-08-13 12:36] LABS: ALBUMIN 1.5 g/dl (3.4-5.0); CALCIUM 8.7 mg/dL (8.5-10.1)
[2022-08-13 12:37] LABS: BLOOD UREA NITROGEN 8.7 mg/dL (7-18)
[2022-08-13 12:39] LABS: MAGNESIUM 1.8 mg/dL (1.8-2.4); PHOSPHOROUS 2.7 mg/dL (2.5-4.9)
[2022-08-13 12:40] LABS: CREATININE 0.5 mg/dL (0.55-1.3)
[2022-08-13 12:41] LABS: BILIRUBIN,TOTAL 0.8 mg/dL (0.2-1); TOT PROT 5.5 g/dl (6.4-8.2)
[2022-08-13] MEDS ORDERED: DEXTROSE 5%-0.45% SALINE 1,000 ML IV SCH (12:45)
[2022-08-13] MEDS ORDERED: ACETAMINOPHEN 500 MG TABLET (FP) PO PRN (12:50)
[2022-08-13] MEDS ORDERED: LACTATED RINGERS SOLUTION 1,000 ML/1,000 ML INFUS.BAG IV SCH ×2 (16:00→18:51)
[2022-08-13] MEDS: HYDROmorphone HCl 2 MG/ML VIAL IVPB PRN (20:16)
[2022-08-14] MEDS: HYDROmorphone HCl 2 MG/ML VIAL IVPB PRN ×5 (01:31→17:32)
[2022-08-14] MEDS: PIPERACILLIN/TAZOB 3.375 GM 3.375 GM in DEXTROSE 5%-WATER - 50 ML IVPB SCH ×3 (02:55→17:42)
[2022-08-14] MEDS: LOPERAMIDE HCL 2 MG CAPSULE PO SCH ×3 (06:23→21:26)
[2022-08-14] MEDS: HEPARIN NA (PORCINE) 5,000 UNITS/ML 1ML VIAL SQ SCH ×2 (06:23→14:47)
[2022-08-14] MEDS: PSYLLIUM 5.85 GM PACKET PO SCH ×3 (06:23→21:26)
[2022-08-14] MEDS: AMINO ACIDS/PROTEIN HYDROLYS 30 ML LIQUID.PKT PO SCH (09:23)
[2022-08-14] MEDS: ALPRAZolam 1 MG TABLET PO PRN (09:27)
[2022-08-14] MEDS: MULTIVIT-MINERALS ORAL LIQUID PO SCH (12:25)
[2022-08-14] MEDS: oxyCODONE HCL 5 MG TABLET PO PRN (21:27)
[2022-08-14] MEDS: ALPRAZolam 0.25 MG TABLET PO PRN (21:27)
[2022-08-14] MEDS: ZOLPIDEM TARTRATE 5 MG TABLET PO PRN (21:27)
[2022-08-15] MEDS: PIPERACILLIN/TAZOB 3.375 GM 3.375 GM in DEXTROSE 5%-WATER - 50 ML IVPB SCH ×3 (02:41→17:24)
[2022-08-15] MEDS: oxyCODONE HCL 5 MG TABLET PO PRN (03:33)
[2022-08-15] MEDS: LOPERAMIDE HCL 2 MG CAPSULE PO SCH ×3 (06:28→21:29)
[2022-08-15] MEDS: PSYLLIUM 5.85 GM PACKET PO SCH ×3 (06:28→21:28)
[2022-08-15] MEDS: HYDROmorphone HCl 2 MG/ML VIAL IVPB PRN (06:29)
[2022-08-15 08:32] LABS: BLOOD UREA NITROGEN 8.4 mg/dL (7-18)
[2022-08-15 08:35] LABS: CREATININE 0.4 mg/dL (0.55-1.3); PHOSPHOROUS 2.7 mg/dL (2.5-4.9)
[2022-08-15 08:36] LABS: BILIRUBIN,TOTAL 0.3 mg/dL (0.2-1); TOT PROT 4.6 g/dl (6.4-8.2)
[2022-08-15 08:43] LABS: ALBUMIN 1.2 g/dl (3.4-5.0)
[2022-08-15] MEDS: AMINO ACIDS/PROTEIN HYDROLYS 30 ML LIQUID.PKT PO SCH (08:51)
[2022-08-15] MEDS: MULTIVIT-MINERALS ORAL LIQUID PO SCH (10:52)
[2022-08-15 10:59] LABS: BASO % 1.1 % (0-2.0); EOS % 0.3 % (0-4.5); HEMATOCRIT 28.3 % (32.4-45.2); HEMOGLOBIN 9.2 GM/dL (10.7-15.3); LYMPH % 9.6 % (8-40); MCH 25.2 pg (25.7-33.7); MCHC 32.4 g/dl (32.0-36.0); MEAN PLT VOLUME 7.5 fl (7.5-11.1); MONO % 9.9 % (3.8-10.2); NEUT % 79.1 % (42.8-82.8); RBC 3.63 M/mm3 (3.60-5.2); RDW 14.6 % (11.6-15.6); WHITE BLOOD COUNT 12.3 K/mm3 (4.0-10.0)
[2022-08-15 11:03] LABS: PLATELET COUNT 1237 10^3/uL (134-434)
[2022-08-15] MEDS: oxyCODONE HCL 5 MG TABLET PO SCH ×2 (16:13→21:29)
[2022-08-15] MEDS ORDERED: PIPERACILLIN/TAZOBACTAM 3.375 GM VIAL IVPB ONE (17:16)
[2022-08-15] MEDS ORDERED: ONDANSETRON 4 MG/2 ML VIAL IVPUSH PRN (19:09)
[2022-08-15] MEDS: ACETAMINOPHEN 500 MG TABLET (FP) PO PRN (19:54)
[2022-08-15] MEDS: ALPRAZolam 0.25 MG TABLET PO PRN (21:28)
[2022-08-15] MEDS: ZOLPIDEM TARTRATE 5 MG TABLET PO PRN (21:29)
[2022-08-16] MEDS: PIPERACILLIN/TAZOB 3.375 GM 3.375 GM in DEXTROSE 5%-WATER - 50 ML IVPB SCH ×3 (02:21→17:58)
[2022-08-16] MEDS: oxyCODONE HCL 5 MG TABLET PO SCH ×4 (05:05→21:40)
[2022-08-16] MEDS: PSYLLIUM 5.85 GM PACKET PO SCH ×3 (05:28→21:39)
[2022-08-16] MEDS: LOPERAMIDE HCL 2 MG CAPSULE PO SCH ×3 (05:28→21:39)
[2022-08-16 09:14] LABS: BASO % 0.4 % (0-2.0); EOS % 0.3 % (0-4.5); HEMATOCRIT 25.3 % (32.4-45.2); HEMOGLOBIN 8.5 GM/dL (10.7-15.3); MCH 26.2 pg (25.7-33.7); MCHC 33.5 g/dl (32.0-36.0); MEAN CELL VOLUME 78.2 fl (80-96); MEAN PLT VOLUME 7.2 fl (7.5-11.1); NEUT % 81.3 % (42.8-82.8); RBC 3.23 M/mm3 (3.60-5.2); RDW 14.4 % (11.6-15.6); WHITE BLOOD COUNT 10.2 K/mm3 (4.0-10.0)
[2022-08-16 09:17] LABS: PLATELET COUNT 1101 10^3/uL (134-434)
[2022-08-16] MEDS: MULTIVIT-MINERALS ORAL LIQUID PO SCH (09:29)
[2022-08-16] MEDS: ASPIRIN COATED 81 MG TABLET.EC PO SCH (09:31)
[2022-08-16] MEDS: AMINO ACIDS/PROTEIN HYDROLYS 30 ML LIQUID.PKT PO SCH (09:31)
[2022-08-16] MEDS: ENOXAPARIN NA (PORCINE) 40 MG/0.4 ML DISP.SYRIN SQ SCH (09:36)
[2022-08-16 10:05] LABS: CALCIUM 8.1 mg/dL (8.5-10.1)
[2022-08-16 10:07] LABS: ALBUMIN 1.3 g/dl (3.4-5.0); BLOOD UREA NITROGEN 7.2 mg/dL (7-18); MAGNESIUM 1.8 mg/dL (1.8-2.4)
[2022-08-16 10:09] LABS: CREATININE 0.4 mg/dL (0.55-1.3); PHOSPHOROUS 2.5 mg/dL (2.5-4.9)
[2022-08-16 10:11] LABS: BILIRUBIN,TOTAL 0.4 mg/dL (0.2-1); TOT PROT 4.8 g/dl (6.4-8.2)
[2022-08-16] MEDS: ALPRAZolam 0.25 MG TABLET PO PRN (21:39)
[2022-08-16] MEDS: ZOLPIDEM TARTRATE 5 MG TABLET PO PRN (21:39)
[2022-08-17] MEDS: PIPERACILLIN/TAZOB 3.375 GM 3.375 GM in DEXTROSE 5%-WATER - 50 ML IVPB SCH ×3 (02:51→17:18)
[2022-08-17] MEDS: LOPERAMIDE HCL 2 MG CAPSULE PO SCH ×3 (05:29→21:54)
[2022-08-17] MEDS: oxyCODONE HCL 5 MG TABLET PO SCH ×2 (05:29→12:42)
[2022-08-17] MEDS: PSYLLIUM 5.85 GM PACKET PO SCH ×4 (05:29→21:58)
[2022-08-17 07:14] LABS: BASO % 0.6 % (0-2.0); EOS % 0.2 % (0-4.5); HEMATOCRIT 25.9 % (32.4-45.2); HEMOGLOBIN 8.5 GM/dL (10.7-15.3); LYMPH % 7.9 % (8-40); MCH 25.3 pg (25.7-33.7); MCHC 32.8 g/dl (32.0-36.0); MEAN CELL VOLUME 77.2 fl (80-96); NEUT % 81.3 % (42.8-82.8); RBC 3.35 M/mm3 (3.60-5.2); RDW 14.7 % (11.6-15.6); WHITE BLOOD COUNT 9.4 K/mm3 (4.0-10.0)
[2022-08-17 07:17] LABS: PLATELET COUNT 1147 10^3/uL (134-434)
[2022-08-17 07:32] LABS: ALBUMIN 1.3 g/dl (3.4-5.0); CALCIUM 8.1 mg/dL (8.5-10.1)
[2022-08-17 07:34] LABS: BLOOD UREA NITROGEN 6.5 mg/dL (7-18); MAGNESIUM 1.9 mg/dL (1.8-2.4)
[2022-08-17 07:37] LABS: CREATININE 0.4 mg/dL (0.55-1.3); PHOSPHOROUS 2.4 mg/dL (2.5-4.9)
[2022-08-17 07:38] LABS: BILIRUBIN,TOTAL 0.4 mg/dL (0.2-1); TOT PROT 4.8 g/dl (6.4-8.2)
[2022-08-17] MEDS: AMINO ACIDS/PROTEIN HYDROLYS 30 ML LIQUID.PKT PO SCH (10:05)
[2022-08-17] MEDS: ASPIRIN COATED 81 MG TABLET.EC PO SCH (10:05)
[2022-08-17] MEDS: ENOXAPARIN NA (PORCINE) 40 MG/0.4 ML DISP.SYRIN SQ SCH (10:05)
[2022-08-17] MEDS: MULTIVIT-MINERALS ORAL LIQUID PO SCH (10:07)
[2022-08-17] MEDS: BACITRACIN 15 GM TUBE TOPICAL OINTMENT TP SCH (10:28)
[2022-08-17] MEDS ORDERED: NAPH,MB-DB/K PH,MBDB POWDER PACKET PO ONE (11:00)
[2022-08-17] MEDS: FOLIC ACID 1 MG TABLET (FP) PO SCH (11:50)
[2022-08-17] MEDS: FERROUS SO4 325 MG TABLET (FP) PO SCH (11:50)
[2022-08-17] MEDS: oxyCODONE HCL 5 MG TABLET PO PRN ×2 (12:35→18:53)
[2022-08-17] MEDS: ACETAMINOPHEN 500 MG TABLET (FP) PO PRN (13:12)
[2022-08-17] MEDS: CODEINE SO4 30 MG TABLET PO SCH (21:53)
[2022-08-17] MEDS: ALPRAZolam 0.25 MG TABLET PO PRN (21:53)
[2022-08-18] MEDS: PIPERACILLIN/TAZOB 3.375 GM 3.375 GM in DEXTROSE 5%-WATER - 50 ML IVPB SCH ×3 (01:03→17:54)
[2022-08-18] MEDS: CODEINE SO4 30 MG TABLET PO SCH ×3 (05:33→21:28)
[2022-08-18] MEDS: LOPERAMIDE HCL 2 MG CAPSULE PO SCH ×3 (05:34→21:27)
[2022-08-18] MEDS: PSYLLIUM 5.85 GM PACKET PO SCH ×3 (05:37→21:28)
[2022-08-18 08:08] LABS: BASO % 0.6 % (0-2.0); EOS % 0.4 % (0-4.5); HEMATOCRIT 29.9 % (32.4-45.2); HEMOGLOBIN 9.7 GM/dL (10.7-15.3); LYMPH % 9.9 % (8-40); MCH 25.1 pg (25.7-33.7); MCHC 32.4 g/dl (32.0-36.0); MEAN CELL VOLUME 77.7 fl (80-96); MEAN PLT VOLUME 6.9 fl (7.5-11.1); MONO % 8.8 % (3.8-10.2); NEUT % 80.3 % (42.8-82.8); RBC 3.85 M/mm3 (3.60-5.2); RDW 14.9 % (11.6-15.6); WHITE BLOOD COUNT 10.9 K/mm3 (4.0-10.0)
[2022-08-18 08:10] LABS: PLATELET COUNT 1288 10^3/uL (134-434)
[2022-08-18 09:30] LABS: BLOOD UREA NITROGEN 4.3 mg/dL (7-18)
[2022-08-18 09:33] LABS: CREATININE 0.5 mg/dL (0.55-1.3); PHOSPHOROUS 2.8 mg/dL (2.5-4.9)
[2022-08-18 09:35] LABS: TOT PROT 5.7 g/dl (6.4-8.2)
[2022-08-18] MEDS: ASPIRIN COATED 81 MG TABLET.EC PO SCH (09:45)
[2022-08-18] MEDS: AMINO ACIDS/PROTEIN HYDROLYS 30 ML LIQUID.PKT PO SCH (09:46)
[2022-08-18] MEDS: FERROUS SO4 325 MG TABLET (FP) PO SCH (09:46)
[2022-08-18] MEDS: FOLIC ACID 1 MG TABLET (FP) PO SCH (09:46)
[2022-08-18] MEDS: ENOXAPARIN NA (PORCINE) 40 MG/0.4 ML DISP.SYRIN SQ SCH (09:46)
[2022-08-18] MEDS: MULTIVIT-MINERALS ORAL LIQUID PO SCH (09:46)
[2022-08-18] MEDS: BACITRACIN 15 GM TUBE TOPICAL OINTMENT TP SCH (09:47)
[2022-08-18 10:03] LABS: CALCIUM 8.8 mg/dL (8.5-10.1)
[2022-08-18 10:10] LABS: BILIRUBIN,TOTAL 0.8 mg/dL (0.2-1)
[2022-08-18 10:17] LABS: ALBUMIN 1.6 g/dl (3.4-5.0)
[2022-08-18] MEDS: oxyCODONE HCL 5 MG TABLET PO PRN ×2 (15:47→23:40)
[2022-08-18] MEDS ORDERED: ZOLPIDEM TARTRATE 5 MG TABLET PO PRN (20:13)
[2022-08-18] MEDS: ALPRAZolam 0.25 MG TABLET PO PRN (21:27)
[2022-08-19] MEDS: PIPERACILLIN/TAZOB 3.375 GM 3.375 GM in DEXTROSE 5%-WATER - 50 ML IVPB SCH ×3 (01:50→17:17)
[2022-08-19] MEDS: CODEINE SO4 30 MG TABLET PO SCH ×3 (05:26→22:48)
[2022-08-19] MEDS: LOPERAMIDE HCL 2 MG CAPSULE PO SCH ×3 (05:26→22:47)
[2022-08-19] MEDS: PSYLLIUM 5.85 GM PACKET PO SCH ×3 (05:27→22:43)
[2022-08-19 07:42] LABS: BASO % 0.9 % (0-2.0); EOS % 0.6 % (0-4.5); HEMATOCRIT 25.8 % (32.4-45.2); HEMOGLOBIN 8.5 GM/dL (10.7-15.3); LYMPH % 11.3 % (8-40); MCH 25.5 pg (25.7-33.7); MCHC 32.9 g/dl (32.0-36.0); MEAN CELL VOLUME 77.5 fl (80-96); MEAN PLT VOLUME 7.2 fl (7.5-11.1); MONO % 10.6 % (3.8-10.2); NEUT % 76.6 % (42.8-82.8); PLATELET COUNT 1000 10^3/uL (134-434); RBC 3.33 M/mm3 (3.60-5.2); RDW 14.9 % (11.6-15.6); WHITE BLOOD COUNT 8.3 K/mm3 (4.0-10.0)
[2022-08-19 08:21] LABS: ALBUMIN 1.5 g/dl (3.4-5.0); CALCIUM 8.4 mg/dL (8.5-10.1)
[2022-08-19 08:22] LABS: BLOOD UREA NITROGEN 4.6 mg/dL (7-18)
[2022-08-19 08:25] LABS: CREATININE 0.4 mg/dL (0.55-1.3); PHOSPHOROUS 2.6 mg/dL (2.5-4.9)
[2022-08-19 08:26] LABS: BILIRUBIN,TOTAL 0.3 mg/dL (0.2-1); TOT PROT 5.2 g/dl (6.4-8.2)
[2022-08-19] MEDS: AMINO ACIDS/PROTEIN HYDROLYS 30 ML LIQUID.PKT PO SCH (08:40)
[2022-08-19] MEDS: ASPIRIN COATED 81 MG TABLET.EC PO SCH (09:39)
[2022-08-19] MEDS: FOLIC ACID 1 MG TABLET (FP) PO SCH (09:39)
[2022-08-19] MEDS: FERROUS SO4 325 MG TABLET (FP) PO SCH (09:40)
[2022-08-19] MEDS: MULTIVIT-MINERALS ORAL LIQUID PO SCH (09:40)
[2022-08-19] MEDS: ENOXAPARIN NA (PORCINE) 40 MG/0.4 ML DISP.SYRIN SQ SCH (09:41)
[2022-08-19] MEDS: BACITRACIN 15 GM TUBE TOPICAL OINTMENT TP SCH (09:41)
[2022-08-19] MEDS: oxyCODONE HCL 5 MG TABLET PO PRN ×2 (10:14→17:17)
[2022-08-19] MEDS: ACETAMINOPHEN 500 MG TABLET (FP) PO PRN (18:43)
[2022-08-19] MEDS: ALPRAZolam 0.25 MG TABLET PO PRN (23:15)
[2022-08-19] MEDS ORDERED: ZOLPIDEM TARTRATE 5 MG TABLET PO ONE (23:19)
[2022-08-20] MEDS: PIPERACILLIN/TAZOB 3.375 GM 3.375 GM in DEXTROSE 5%-WATER - 50 ML IVPB SCH ×3 (01:22→17:33)
[2022-08-20] MEDS: LOPERAMIDE HCL 2 MG CAPSULE PO SCH ×3 (06:13→21:39)
[2022-08-20] MEDS: PSYLLIUM 5.85 GM PACKET PO SCH ×3 (06:14→21:05)
[2022-08-20] MEDS: CODEINE SO4 30 MG TABLET PO SCH ×3 (06:20→21:05)
[2022-08-20 08:12] LABS: BASO % 0.7 % (0-2.0); EOS % 0.4 % (0-4.5); HEMATOCRIT 29.6 % (32.4-45.2); HEMOGLOBIN 9.5 GM/dL (10.7-15.3); LYMPH % 11.4 % (8-40); MCH 24.7 pg (25.7-33.7); MCHC 32.2 g/dl (32.0-36.0); MEAN CELL VOLUME 76.6 fl (80-96); MEAN PLT VOLUME 6.5 fl (7.5-11.1); MONO % 8.4 % (3.8-10.2); NEUT % 79.1 % (42.8-82.8); PLATELET COUNT 989 10^3/uL (134-434); RBC 3.86 M/mm3 (3.60-5.2); RDW 14.8 % (11.6-15.6); WHITE BLOOD COUNT 8.7 K/mm3 (4.0-10.0)
[2022-08-20 08:35] LABS: CALCIUM 8.5 mg/dL (8.5-10.1)
[2022-08-20 08:36] LABS: ALBUMIN 1.7 g/dl (3.4-5.0); BLOOD UREA NITROGEN 3.4 mg/dL (7-18); MAGNESIUM 2.1 mg/dL (1.8-2.4)
[2022-08-20 08:39] LABS: CREATININE 0.5 mg/dL (0.55-1.3); PHOSPHOROUS 2.4 mg/dL (2.5-4.9)
[2022-08-20 08:40] LABS: TOT PROT 5.9 g/dl (6.4-8.2)
[2022-08-20 08:41] LABS: BILIRUBIN,TOTAL 0.3 mg/dL (0.2-1)
[2022-08-20] MEDS: ASPIRIN COATED 81 MG TABLET.EC PO SCH (09:35)
[2022-08-20] MEDS: FOLIC ACID 1 MG TABLET (FP) PO SCH (09:35)
[2022-08-20] MEDS: FERROUS SO4 325 MG TABLET (FP) PO SCH (09:35)
[2022-08-20] MEDS: ENOXAPARIN NA (PORCINE) 40 MG/0.4 ML DISP.SYRIN SQ SCH (09:36)
[2022-08-20] MEDS: MULTIVIT-MINERALS ORAL LIQUID PO SCH (09:36)
[2022-08-20] MEDS: AMINO ACIDS/PROTEIN HYDROLYS 30 ML LIQUID.PKT PO SCH (09:36)
[2022-08-20] MEDS: oxyCODONE HCL 5 MG TABLET PO PRN (12:57)
[2022-08-20] MEDS: BACITRACIN 15 GM TUBE TOPICAL OINTMENT TP SCH (13:52)
[2022-08-20] MEDS: ALPRAZolam 0.25 MG TABLET PO PRN (21:05)
[2022-08-21] MEDS: PIPERACILLIN/TAZOB 3.375 GM 3.375 GM in DEXTROSE 5%-WATER - 50 ML IVPB SCH ×3 (01:29→18:14)
[2022-08-21] MEDS: oxyCODONE HCL 5 MG TABLET PO PRN ×2 (01:29→10:18)
[2022-08-21] MEDS: LOPERAMIDE HCL 2 MG CAPSULE PO SCH ×3 (06:14→21:29)
[2022-08-21] MEDS: CODEINE SO4 30 MG TABLET PO SCH ×3 (06:14→21:29)
[2022-08-21] MEDS: PSYLLIUM 5.85 GM PACKET PO SCH ×3 (06:15→21:46)
[2022-08-21 08:16] LABS: CALCIUM 8.3 mg/dL (8.5-10.1)
[2022-08-21 08:18] LABS: ALBUMIN 1.7 g/dl (3.4-5.0); BLOOD UREA NITROGEN 6.2 mg/dL (7-18)
[2022-08-21 08:20] LABS: CREATININE 0.5 mg/dL (0.55-1.3)
[2022-08-21 08:21] LABS: BILIRUBIN,TOTAL 0.3 mg/dL (0.2-1); HEMATOCRIT 28.9 % (32.4-45.2); HEMOGLOBIN 9.2 GM/dL (10.7-15.3); MCH 24.7 pg (25.7-33.7); MEAN CELL VOLUME 77.4 fl (80-96); PLATELET COUNT 790 10^3/uL (134-434); RBC 3.73 M/mm3 (3.60-5.2); TOT PROT 5.8 g/dl (6.4-8.2); WHITE BLOOD COUNT 8.2 K/mm3 (4.0-10.0)
[2022-08-21] MEDS: FERROUS SO4 325 MG TABLET (FP) PO SCH (10:15)
[2022-08-21] MEDS: FOLIC ACID 1 MG TABLET (FP) PO SCH (10:15)
[2022-08-21] MEDS: AMINO ACIDS/PROTEIN HYDROLYS 30 ML LIQUID.PKT PO SCH (10:15)
[2022-08-21] MEDS: ASPIRIN COATED 81 MG TABLET.EC PO SCH (10:15)
[2022-08-21] MEDS: ENOXAPARIN NA (PORCINE) 40 MG/0.4 ML DISP.SYRIN SQ SCH (10:16)
[2022-08-21] MEDS: MULTIVIT-MINERALS ORAL LIQUID PO SCH (11:44)
[2022-08-21] MEDS: ACETAMINOPHEN 500 MG TABLET (FP) PO PRN (13:31)
[2022-08-21] MEDS: BACITRACIN 15 GM TUBE TOPICAL OINTMENT TP SCH (16:07)
[2022-08-21] MEDS: ALPRAZolam 0.25 MG TABLET PO PRN (21:29)
[2022-08-22] MEDS: oxyCODONE HCL 5 MG TABLET PO PRN (00:53)
[2022-08-22] MEDS: PIPERACILLIN/TAZOB 3.375 GM 3.375 GM in DEXTROSE 5%-WATER - 50 ML IVPB SCH ×3 (02:07→18:12)
[2022-08-22] MEDS: ACETAMINOPHEN 500 MG TABLET (FP) PO PRN ×2 (02:18→16:00)
[2022-08-22] MEDS: ALPRAZolam 0.25 MG TABLET PO PRN (05:25)
[2022-08-22] MEDS: CODEINE SO4 30 MG TABLET PO SCH ×3 (05:25→22:31)
[2022-08-22] MEDS: PSYLLIUM 5.85 GM PACKET PO SCH ×3 (05:38→22:37)
[2022-08-22] MEDS: LOPERAMIDE HCL 2 MG CAPSULE PO SCH ×3 (06:34→22:31)
[2022-08-22] MEDS: ASPIRIN COATED 81 MG TABLET.EC PO SCH (12:38)
[2022-08-22] MEDS: FERROUS SO4 325 MG TABLET (FP) PO SCH (12:38)
[2022-08-22] MEDS: FOLIC ACID 1 MG TABLET (FP) PO SCH (12:39)
[2022-08-22] MEDS: ENOXAPARIN NA (PORCINE) 40 MG/0.4 ML DISP.SYRIN SQ SCH (12:39)
[2022-08-22] MEDS: BACITRACIN 15 GM TUBE TOPICAL OINTMENT TP SCH (12:39)
[2022-08-22] MEDS: AMINO ACIDS/PROTEIN HYDROLYS 30 ML LIQUID.PKT PO SCH (12:43)
[2022-08-22] MEDS: MULTIVIT-MINERALS ORAL LIQUID PO SCH (13:14)
[2022-08-23] MEDS: CODEINE SO4 30 MG TABLET PO SCH ×3 (05:53→21:44)
[2022-08-23] MEDS: PSYLLIUM 5.85 GM PACKET PO SCH ×3 (05:54→21:44)
[2022-08-23] MEDS: LOPERAMIDE HCL 2 MG CAPSULE PO SCH ×3 (05:54→21:44)
[2022-08-23 07:59] LABS: BASO % 0.8 % (0-2.0); EOS % 0.7 % (0-4.5); HEMATOCRIT 30.3 % (32.4-45.2); HEMOGLOBIN 9.6 GM/dL (10.7-15.3); LYMPH % 11.5 % (8-40); MCH 24.3 pg (25.7-33.7); MCHC 31.7 g/dl (32.0-36.0); MEAN CELL VOLUME 76.6 fl (80-96); MEAN PLT VOLUME 6.8 fl (7.5-11.1); PLATELET COUNT 665 10^3/uL (134-434); RBC 3.95 M/mm3 (3.60-5.2); RDW 15.3 % (11.6-15.6); WHITE BLOOD COUNT 8.5 K/mm3 (4.0-10.0)
[2022-08-23 08:12] LABS: BLOOD UREA NITROGEN 4.4 mg/dL (7-18); CALCIUM 8.6 mg/dL (8.5-10.1)
[2022-08-23 08:16] LABS: CREATININE 0.5 mg/dL (0.55-1.3)
[2022-08-23] MEDS: AMINO ACIDS/PROTEIN HYDROLYS 30 ML LIQUID.PKT PO SCH (10:35)
[2022-08-23] MEDS: BACITRACIN 15 GM TUBE TOPICAL OINTMENT TP SCH (10:35)
[2022-08-23] MEDS: FERROUS SO4 325 MG TABLET (FP) PO SCH (10:35)
[2022-08-23] MEDS: ASPIRIN COATED 81 MG TABLET.EC PO SCH (10:36)
[2022-08-23] MEDS: MULTIVIT-MINERALS ORAL LIQUID PO SCH (10:36)
[2022-08-23] MEDS: FOLIC ACID 1 MG TABLET (FP) PO SCH (10:36)
[2022-08-23] MEDS ORDERED: ENOXAPARIN NA (PORCINE) 40 MG/0.4 ML DISP.SYRIN SQ SCH (16:30)
[2022-08-23] MEDS: ACETAMINOPHEN 500 MG TABLET (FP) PO PRN (18:30)
[2022-08-23] MEDS ORDERED: CEFPODOXIME PROXETIL 200 MG TABLET [NF] PO SCH (22:00)
[2022-08-23] MEDS ORDERED: metroNIDAZOLE 250 MG TABLET PO SCH (22:00)
[2022-08-23] MEDS ORDERED: ZOLPIDEM TARTRATE 5 MG TABLET PO PRN (22:33)
[2022-08-24 01:21] VITALS: BP 118/67; PULSE 97; RESP 20; TEMP 98.7
== END 2022-08-24 03:56 | DRG 856 ==
LOC: JER 09:50 → JERBED 17:36 → JICU 08-05 20:42 → J6S 08-08 22:21 → J4S 08-13 19:24
PROVIDERS: ADMIT Internal Medicine; ATTEND Internal Medicine
PROC: 0DBB0ZZ Excision of Ileum, Open Approach (ICD-10-PCS; 2022-08-05)
PROC: 0DJ60ZZ Inspection of Stomach, Open Approach (ICD-10-PCS; 2022-08-05)
PROC: 3E1M38Z Irrigation of Peritoneal Cavity using Irrigating Substance, Percutaneous Approach (ICD-10-PCS; 2022-08-05)
PROC: 0D1B0Z4 Bypass Ileum to Cutaneous, Open Approach (ICD-10-PCS; principal; 2022-08-05 14:30)
PROC: 0W9G30Z Drainage of Peritoneal Cavity with Drainage Device, Percutaneous Approach (ICD-10-PCS; 2022-08-10)
PROC: 0W9G30Z Drainage of Peritoneal Cavity with Drainage Device, Percutaneous Approach (ICD-10-PCS; 2022-08-14)
DX: T81.44XA Sepsis following a procedure, initial encounter (principal); A41.89 Other specified sepsis; J18.9 Pneumonia, unspecified organism; K65.1 Peritoneal abscess; K63.1 Perforation of intestine (nontraumatic); K91.89 Other postprocedural complications and disorders of digestive system; C18.2 Malignant neoplasm of ascending colon; N17.9 Acute kidney failure, unspecified; E87.4 Mixed disorder of acid-base balance; J98.11 Atelectasis; E87.20 Acidosis, unspecified; E87.3 Alkalosis; E87.0 Hyperosmolality and hypernatremia; J90 Pleural effusion, not elsewhere classified; K91.30 Postprocedural intestinal obstruction, unspecified as to partial versus complete; E86.0 Dehydration; R00.0 Tachycardia, unspecified; D50.9 Iron deficiency anemia, unspecified; G47.00 Insomnia, unspecified; G89.18 Other acute postprocedural pain; R26.9 Unspecified abnormalities of gait and mobility; D75.839 Thrombocytosis, unspecified; E87.5 Hyperkalemia; E83.42 Hypomagnesemia; Z85.3 Personal history of malignant neoplasm of breast; E83.39 Other disorders of phosphorus metabolism; Y83.8 Other surgical procedures as the cause of abnormal reaction of the patient, or of later complication, without mention of misadventure at the time of the procedure; E88.09 Other disorders of plasma-protein metabolism, not elsewhere classified
CPT/HCPCS: 0241U-QW; 36415; 49406; 71045-TC-FY; 71260-TC; 71275-TC; 74177-TC; 80048; 80053; 81003; 82550; 82553; 82803; 82962; 83605; 83735; 84100; 84300; 84484; 85025; 85027; 85610; 85730; 86140; 86850; 86900; 86901; 87040; 87070; 87075; 87076; 87081; 87086; 87102; 87116; 87186; 87205; 87206; 87210; 88307-TC; 93005; 93010; 93970-TC; 94010; 94760; 97116-GP; 97162-GP; 99291; A4358; C1729; C1769; C9803-CS; G0463; J1644; Q9967; U0003; U0005

== ENCOUNTER 2023-07-30 04:01 | Inpatient (IN) | payer OTHER, BC ==
[2023-07-25 13:13] VITALS: BMI 21.4
[~2023-07-30 04:01] MED LIST: BUPIVACAINE HCL/PF 0.25% (2.5MG/ML) 10 ML VIAL IJ ONE
[2023-07-30] MEDS ORDERED: BUPIVACAINE HCL/PF 0.25% (2.5MG/ML) 10 ML VIAL ONE ×2 (10:55→12:54)
[2023-07-30] MEDS ORDERED: INDOCYANINE GREEN 25 MG/10 ML VIAL IVPUSH ONE (10:56)
[2023-07-30] MEDS ORDERED: HEPARIN NA (PORCINE) 5,000 UNITS/ML 1ML VIAL ONE ×2 (10:56→12:54)
[2023-07-30] MEDS ORDERED: ceFAZolin SODIUM 1 GM VIAL ONE (12:53)
[2023-07-30] MEDS ORDERED: LIDOCAINE HCL/PF 2% SDV 5ML VIAL ONE (13:16)
[2023-07-30] MEDS ORDERED: PROPOFOL 40 ML ONE (13:16)
[2023-07-30] MEDS ORDERED: DEXAMETHASONE SOD PHOSPHATE 4 MG/1 ML VIAL ONE (13:17)
[2023-07-30] MEDS ORDERED: ONDANSETRON 4 MG/2 ML VIAL ONE (13:17)
[2023-07-30] MEDS ORDERED: MIDAZOLAM HCL 2 MG/2 ML SINGLE DOSE VIAL ONE (13:18)
[2023-07-30] MEDS ORDERED: FENTANYL CITRATE/PF 50 MCG/ML VIAL ONE ×7 (13:19→19:35)
[2023-07-30] MEDS ORDERED: ROCURONIUM BROMIDE 50 MG/5 ML SYRINGE ONE (13:20)
[2023-07-30] MEDS ORDERED: ACETAMINOPHEN INJECTION 100 ML IVPB ONE (13:21)
[2023-07-30] MEDS ORDERED: cefOXitin SODIUM 2 GM VIAL (RESTRICTED TO ID) IVPB ONE (13:51)
[2023-07-30] MEDS ORDERED: HYDROmorphone HCl 2 MG/ML VIAL ONE (13:53)
[2023-07-30] MEDS ORDERED: KETAMINE HCL 200 MG/20 ML VIAL ONE (14:24)
[2023-07-30] MEDS ORDERED: BUPIVACAINE HCL/PF 0.25% (2.5MG/ML) 10 ML VIAL IJ ONE (14:36)
[2023-07-30] MEDS ORDERED: ONDANSETRON 4 MG/2 ML VIAL IVPUSH PRN (16:42)
[2023-07-30] MEDS ORDERED: morphine CARPU-JECT 2 MG/1 ML DISP.SYRIN IVPUSH PRN (16:49)
[2023-07-30] MEDS ORDERED: LACTATED RINGERS SOLUTION 1,000 ML IV SCH (17:15)
[2023-07-30 17:33] LABS: HEMATOCRIT 32.2 % (32.4-45.2); HEMOGLOBIN 10.3 GM/dL (10.7-15.3); MCH 26.6 pg (25.7-33.7); PLATELET COUNT 262 10^3/uL (134-434); RBC 3.88 M/mm3 (3.60-5.2); RDW 14.3 % (11.6-15.6)
[2023-07-30] MEDS: SODIUM CHLORIDE 1,000 ML IV SCH ×2 (20:28→22:47)
[2023-07-30] MEDS: oxyCODONE HCL 5 MG TABLET PO PRN (21:13)
[2023-07-30] MEDS ORDERED: CEFOXITIN SODIUM 2 GM in DEXTROSE 5%-WATER 100 ML IVPB ONE (22:00)
[2023-07-30] MEDS ORDERED: MELATONIN 5 MG TABLETS PO ONE (23:16)
[2023-07-30] MEDS: ACETAMINOPHEN 1000 MG/100 ML BAG IVPB SCH (23:42)
[2023-07-31] MEDS: ACETAMINOPHEN 1000 MG/100 ML BAG IVPB SCH ×2 (04:43→10:23)
[2023-07-31 09:42] LABS: HEMATOCRIT 30.6 % (32.4-45.2); HEMOGLOBIN 9.6 GM/dL (10.7-15.3); MCH 26.5 pg (25.7-33.7); MCHC 31.5 g/dl (32.0-36.0); MEAN CELL VOLUME 84.2 fl (80-96); MEAN PLT VOLUME 7.6 fl (7.5-11.1); PLATELET COUNT 259 10^3/uL (134-434); RBC 3.64 M/mm3 (3.60-5.2); RDW 13.6 % (11.6-15.6); WHITE BLOOD COUNT 10.6 K/mm3 (4.0-10.0)
[2023-07-31 10:03] LABS: POTASSIUM 3.4 mmol/L (3.5-5.1)
[2023-07-31] MEDS: oxyCODONE HCL 5 MG TABLET PO PRN ×3 (10:20→20:25)
[2023-07-31] MEDS: ENOXAPARIN NA (PORCINE) 40 MG/0.4 ML DISP.SYRIN SQ SCH (10:22)
[2023-07-31] MEDS: CITALOPRAM HYDROBROMIDE 20 MG TABLET PO SCH (10:22)
[2023-07-31 10:30] LABS: BLOOD UREA NITROGEN 8.6 mg/dL (7-18); CALCIUM 8.2 mg/dL (8.5-10.1)
[2023-07-31] MEDS ORDERED: POTASSIUM CHLORIDE ORAL LIQUID 20 MEQ/15 ML PO ONE (11:00)
[2023-07-31] MEDS: ACETAMINOPHEN 500 MG TABLET (FP) PO SCH ×2 (11:13→18:16)
[2023-07-31] MEDS ORDERED: traMADol HCL 50 MG TABLET PO ONE (22:47)
[2023-08-01] MEDS: oxyCODONE HCL 5 MG TABLET PO PRN ×2 (02:03→06:56)
[2023-08-01] MEDS: ACETAMINOPHEN 500 MG TABLET (FP) PO SCH ×3 (02:52→18:45)
[2023-08-01] MEDS ORDERED: ACETAMINOPHEN 500 MG TABLET (FP) PO SCH (06:00)
[2023-08-01 08:34] LABS: BASO % 0.3 % (0-2.0); EOS % 0.1 % (0-4.5); HEMATOCRIT 31.4 % (32.4-45.2); HEMOGLOBIN 9.9 GM/dL (10.7-15.3); LYMPH % 13.4 % (8-40); MCH 26.6 pg (25.7-33.7); MCHC 31.6 g/dl (32.0-36.0); MEAN CELL VOLUME 84.1 fl (80-96); MEAN PLT VOLUME 7.9 fl (7.5-11.1); MONO % 6.4 % (3.8-10.2); NEUT % 79.8 % (42.8-82.8); PLATELET COUNT 265 10^3/uL (134-434); RBC 3.74 M/mm3 (3.60-5.2); RDW 13.7 % (11.6-15.6); WHITE BLOOD COUNT 8.1 K/mm3 (4.0-10.0)
[2023-08-01 09:14] LABS: POTASSIUM 3.7 mmol/L (3.5-5.1)
[2023-08-01 09:33] LABS: BLOOD UREA NITROGEN 7.3 mg/dL (7-18); CALCIUM 8.5 mg/dL (8.5-10.1)
[2023-08-01 09:37] LABS: CREATININE 0.8 mg/dL (0.55-1.3)
[2023-08-01] MEDS: CITALOPRAM HYDROBROMIDE 20 MG TABLET PO SCH (10:05)
[2023-08-01] MEDS: ENOXAPARIN NA (PORCINE) 40 MG/0.4 ML DISP.SYRIN SQ SCH (10:06)
[2023-08-01] MEDS: traMADol HCL 50 MG TABLET PO PRN ×2 (14:17→22:02)
[2023-08-01] MEDS ORDERED: MELATONIN 5 MG TABLETS PO ONE (21:46)
[2023-08-02] MEDS: ACETAMINOPHEN 500 MG TABLET (FP) PO SCH ×4 (02:42→17:44)
[2023-08-02] MEDS: traMADol HCL 50 MG TABLET PO PRN ×2 (08:31→22:24)
[2023-08-02 09:14] LABS: BASO % 0.4 % (0-2.0); EOS % 1.3 % (0-4.5); HEMATOCRIT 32.3 % (32.4-45.2); HEMOGLOBIN 10.2 GM/dL (10.7-15.3); LYMPH % 20.3 % (8-40); MCH 26.7 pg (25.7-33.7); MCHC 31.7 g/dl (32.0-36.0); MEAN CELL VOLUME 84.3 fl (80-96); MEAN PLT VOLUME 7.9 fl (7.5-11.1); MONO % 8.9 % (3.8-10.2); NEUT % 69.1 % (42.8-82.8); PLATELET COUNT 270 10^3/uL (134-434); RBC 3.83 M/mm3 (3.60-5.2); RDW 13.9 % (11.6-15.6); WHITE BLOOD COUNT 5.7 K/mm3 (4.0-10.0)
[2023-08-02 09:43] LABS: POTASSIUM 3.8 mmol/L (3.5-5.1)
[2023-08-02 09:50] LABS: ALBUMIN 2.8 g/dl (3.4-5.0); BLOOD UREA NITROGEN 5.9 mg/dL (7-18); CREATININE 0.8 mg/dL (0.55-1.3)
[2023-08-02 09:52] LABS: BILIRUBIN,TOTAL 0.8 mg/dL (0.2-1); TOT PROT 6.2 g/dl (6.4-8.2)
[2023-08-02 09:54] LABS: CALCIUM 8.4 mg/dL (8.5-10.1)
[2023-08-02] MEDS: ENOXAPARIN NA (PORCINE) 40 MG/0.4 ML DISP.SYRIN SQ SCH (10:08)
[2023-08-02] MEDS: CITALOPRAM HYDROBROMIDE 20 MG TABLET PO SCH (10:08)
[2023-08-02] MEDS ORDERED: MELATONIN 5 MG TABLETS PO PRN (20:41)
[2023-08-03] MEDS: ACETAMINOPHEN 500 MG TABLET (FP) PO SCH (02:08)
[2023-08-03 08:30] LABS: BASO % 0.4 % (0-2.0); EOS % 3.3 % (0-4.5); HEMATOCRIT 28.5 % (32.4-45.2); HEMOGLOBIN 9.2 GM/dL (10.7-15.3); LYMPH % 19.6 % (8-40); MCHC 32.2 g/dl (32.0-36.0); MEAN CELL VOLUME 83.8 fl (80-96); MEAN PLT VOLUME 7.9 fl (7.5-11.1); MONO % 10.7 % (3.8-10.2); PLATELET COUNT 259 10^3/uL (134-434); RDW 13.8 % (11.6-15.6); WHITE BLOOD COUNT 4.1 K/mm3 (4.0-10.0)
[2023-08-03 08:46] LABS: ALBUMIN 2.3 g/dl (3.4-5.0); BLOOD UREA NITROGEN 8.2 mg/dL (7-18); MAGNESIUM 1.8 mg/dL (1.8-2.4)
[2023-08-03 08:49] LABS: CREATININE 0.7 mg/dL (0.55-1.3)
[2023-08-03 08:51] LABS: BILIRUBIN,TOTAL 0.4 mg/dL (0.2-1); TOT PROT 5.4 g/dl (6.4-8.2)
[2023-08-03] MEDS: ENOXAPARIN NA (PORCINE) 40 MG/0.4 ML DISP.SYRIN SQ SCH (09:07)
[2023-08-03] MEDS: CITALOPRAM HYDROBROMIDE 20 MG TABLET PO SCH (09:07)
[2023-08-03 12:14] VITALS: BP 121/73; PULSE 82; RESP 20; TEMP 98.4
== END 2023-08-03 13:43 | disposition home or self-care (01) | DRG 331 ==
LOC: J2C 04:01 → J8W 20:17
PROVIDERS: ADMIT Surgery; ATTEND Nurse Practitioner Family
PROC: 0DSB0ZZ Reposition Ileum, Open Approach (ICD-10-PCS; 2023-07-30)
PROC: 0DNW0ZZ Release Peritoneum, Open Approach (ICD-10-PCS; 2023-07-30)
PROC: 8E0W0CZ Robotic Assisted Procedure of Trunk Region, Open Approach (ICD-10-PCS; 2023-07-30)
PROC: 0DBB0ZZ Excision of Ileum, Open Approach (ICD-10-PCS; principal; 2023-07-30 12:45)
DX: Z43.2 Encounter for attention to ileostomy (principal); D50.9 Iron deficiency anemia, unspecified; G89.18 Other acute postprocedural pain; Z85.3 Personal history of malignant neoplasm of breast
CPT/HCPCS: 36415; 80048; 80053; 83735; 84100; 85025; 85027; 86140; 86704; 86803; 86850; 86900; 86901; 87517; 88304-TC; 94010; 94760; 97116-GP; 97161-GP; J1644